=== PATIENT | female | born 1940 | race Caucasian/White ===

== ENCOUNTER → 2021-06-15 | Outpatient (CLI) | payer MEDICARE | END | disposition home or self-care (01) | LOC: RADUSWWP 09:50 | PROVIDERS: ATTEND Family Medicine | DX: M79.661 Pain in right lower leg (principal); M79.662 Pain in left lower leg | CPT/HCPCS: 93922 ==

== ENCOUNTER 2021-08-20 14:33 | Observation (INO) | payer OTHER, MEDICARE ==
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
[2021-08-20 15:48] LABS: Basophils % (A) 0 %; Eosinophils # (A) 0.1 k/uL (0-0.7); Eosinophils % (A) 1 %; HCT 40.7 % (34.0-46.0); HGB 13.5 gm/dL (11.4-16.0); Lymphocytes # (A) 1.5 k/uL (1.0-4.8); Lymphocytes % (A) 17 %; MCH 31.6 pg (25.0-35.0); MCHC 33.2 g/dL (31.0-37.0); MCV 95.4 fL (80.0-100.0); Mean Platelet Volume 8.6; Monocytes # (A) 0.4 k/uL (0-1.0); Monocytes % (A) 5 %; Neutrophils # (A) 6.8 k/uL (1.3-7.7); Neutrophils % (A) 76 %; Platelet Count 159 k/uL (150-450); RBC 4.27 m/uL (3.80-5.40); RDW 12.5 % (11.5-15.5)
[2021-08-20 15:59] LABS: ALT 27 U/L (4-34); AST 33 U/L (14-36); African American GFR (CKD) 81 (>60 ml/min/1.73 sqM); Albumin 4.2 g/dL (3.5-5.0); Alcohol <10 mg/dL; Alkaline Phosphatase 71 U/L (38-126); Anion Gap 5 mmol/L; Blood Urea Nitrogen 18 mg/dL (7-17); Calcium 9.1 mg/dL (8.4-10.2); Carbon Dioxide 27 mmol/L (22-30); Chloride 104 mmol/L (98-107); Glucose 118 mg/dL (74-99); Non-African American GFR(CKD) 71 (>60 ml/min/1.73 sqM); Potassium 3.9 mmol/L (3.5-5.1); Sodium 136 mmol/L (137-145); Total Bilirubin 0.3 mg/dL (0.2-1.3); Total Protein 6.6 g/dL (6.3-8.2)
[2021-08-20 16:01] LABS: Partial Thromboplastin Time 26.6 sec (22.0-30.0); Prothrombin Time 10.5 sec (9.0-12.0)
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
[2021-08-20] MEDS: MORPHINE SULFATE 2 MG/ML SYRINGE IVP STA ×2 (16:13→17:09)
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
[2021-08-20] MEDS ORDERED: MORPHINE SULFATE 4 MG/ML SYRINGE IVP STA (19:16)
[2021-08-20] MEDS ORDERED: ACET/COD 300 MG/30 MG STARTER PACK 6 TAB BTL PO STA (22:18)
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
[2021-08-20] MEDS ORDERED: NALOXONE 0.4 MG/ML 1 ML VIAL IV PRN (23:06)
[2021-08-20] MEDS ORDERED: MORPHINE SULFATE 4 MG/ML SYRINGE IV PRN (23:06)
[2021-08-20 23:18] LABS: Amorphous Sediment,Urine Occasional /hpf; Appearance,Urine Cloudy (Clear); Bilirubin,Urine Negative (Negative); Blood,Urine Negative (Negative); Color,Urine Light Yellow; Glucose,Urine (UA) Negative (Negative); Ketones,Urine Negative (Negative); Leukocyte Esterase,Urine Negative (Negative); Nitrite,Urine Negative (Negative); PH, Urine 7.5 (5.0-8.0); Protein,Urine Negative (Negative); RBC,Urine 1 /hpf (0-5); Squamous Epithelial Cell,Urine <1 /hpf (0-4); Urobilinogen,Urine <2.0 mg/dL (<2.0); WBC,Urine 1 /hpf (0-5)
[2021-08-20 23:21] LABS: Amphetamine Screen,Urine Not Detected (NotDetected); Barbiturate Screen,Urine Not Detected (NotDetected); Benzodiazepines Screen,Urine Not Detected (NotDetected); Cocaine Screen,Urine Not Detected (NotDetected); Methadone Screen, Urine Not Detected (NotDetected); Opiate Screen,Urine Detected (NotDetected); Oxycodone Screen, Urine Not Detected (NotDetected); Phencyclidine Screen,Urine Not Detected (NotDetected); Tricyclic Antidepressant,Urine Not Detected (NotDetected); Urn Cannabinoid Scrn Not Detected (NotDetected)
[2021-08-21] MEDS: ONDANSETRON 4 MG/2 ML VIAL IVP PRN ×2 (01:07→09:55)
[2021-08-21] MEDS ORDERED: ACETAMINOPHEN TAB 325 MG TAB PO PRN (03:09)
[2021-08-21 07:06] VITALS: RESP 16
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
[2021-08-21] MEDS ORDERED: PANTOPRAZOLE 40 MG TABLET PO SCH (17:30)
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
[2021-08-21] MEDS ORDERED: ASPIRIN 81 MG PO SCH (20:30)
[2021-08-21] MEDS ORDERED: ATORVASTATIN 10 MG TAB PO SCH (21:00)
[2021-08-21 21:48] VITALS: BP 163/56; PULSE 75; TEMP 98.4
== END 2021-08-21 20:33 | disposition left against medical advice (07) ==
LOC: EC 14:33 → 6NMEDSUR 23:18
PROVIDERS: ADMIT Surgery; ATTEND Surgery
DX: S52.612A Displaced fracture of left ulna styloid process, initial encounter for closed fracture (principal); S52.502A Unspecified fracture of the lower end of left radius, initial encounter for closed fracture; S52.572A Other intraarticular fracture of lower end of left radius, initial encounter for closed fracture; R11.0 Nausea; R42 Dizziness and giddiness; S40.022A Contusion of left upper arm, initial encounter; S40.021A Contusion of right upper arm, initial encounter; S80.12XA Contusion of left lower leg, initial encounter; S80.11XA Contusion of right lower leg, initial encounter; E78.5 Hyperlipidemia, unspecified; K21.9 Gastro-esophageal reflux disease without esophagitis; R20.0 Anesthesia of skin; R07.89 Other chest pain; R03.0 Elevated blood-pressure reading, without diagnosis of hypertension; M79.18 Myalgia, other site; Z87.891 Personal history of nicotine dependence; V89.2XXA Person injured in unspecified motor-vehicle accident, traffic, initial encounter; W22.11XA Striking against or struck by driver side automobile airbag, initial encounter; Z71.9 Counseling, unspecified; V43.52XA Car driver injured in collision with other type car in traffic accident, initial encounter; Y92.410 Unspecified street and highway as the place of occurrence of the external cause; Z79.899 Other long term (current) drug therapy; Z79.82 Long term (current) use of aspirin; Z79.83 Long term (current) use of bisphosphonates; Z90.710 Acquired absence of both cervix and uterus
CPT/HCPCS: 96376 ×2; 96375; 96374; 99285; 36415; 93005; 97535; 97166; 86900; 86901; 80053; 84484; 85025; 85610; 85730; 86850; 81001; 80306; 80320; 73110; 73030; 73590; 73080; 73090; 73130; 71045; 93880; 73200; 72125; 70450; 71260; 74177; G0378 ×2; J2270 ×3; J2405; Q9967

== ENCOUNTER 2021-08-26 11:51 | Day surgery (SDC) | payer OTHER, MEDICARE ==
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
[~2021-08-26 11:51] MED LIST: HYDROmorphone 0.5 MG/0.5 ML SYRINGE IVP PRN; LACTATED RINGERS 1,000 ML IV SCH; LIDOCAINE 1% (10MG/ML) FOR IV START INTRADERMA PRN; ONDANSETRON 4 MG/2 ML VIAL IVP ONE
[2021-08-26] MEDS ORDERED: LACTATED RINGERS 1,000 ML IV ONE (13:03)
[2021-08-26] MEDS ORDERED: MIDAZOLAM 2 MG/2 ML VIAL IVP ONE (13:06)
[2021-08-26] MEDS ORDERED: MIDAZOLAM 2 MG/2 ML VIAL ONE (14:08)
[2021-08-26] MEDS ORDERED: LIDOCAINE 2% INJ 20 MG/ML (2 ML VIAL) ONE (14:08)
[2021-08-26] MEDS ORDERED: PROPOFOL 10 MG/ML 20 ML VIAL IV ONE (14:08)
[2021-08-26] MEDS ORDERED: fentaNYL (PF) 50 MCG/ML 2 ML AMP ONE (14:08)
[2021-08-26] MEDS ORDERED: ROPIVACAINE 5 MG/ML 30 ML VIAL ONE (14:08)
[2021-08-26] MEDS ORDERED: hydrALAZINE HCL 20 MG/ML 1 ML VIAL IVP ONE (15:53)
[2021-08-26 16:12] VITALS: TEMP 97.4
[2021-08-26 16:17] VITALS: RESP 16
[2021-08-26 17:04] VITALS: BP 168/66; PULSE 100
--- NOTE | 2021-08-26 18:27 | P.ANPRN ---
Procedure Note - Anesthesia - Nerve Block Performed Left Axillary Time Out Performed: Yes (13:05) Date of Procedure: 08/26/21 Procedure Start Time: :05 Procedure Stop Time: :14 Location of Patient: PreOp Indication: Acute Post-Operative Pain, Requested by Surgeon (Dr Smith) Sedation Type: Sedate with meaningful contact maintained Preparation: Sterile Prep Position: Supine Catheter: None Needle Types: Pajunk Needle Gauge: Other (see comment) (22g) Ultrasound used to visualize needle placement: Yes Ultrasound used to observe medication spread: Yes Injectate: 0.5% Ropivacaine (see comment for volume) (20cc) Blood Aspirated: No Pain Paresthesia on Injection Noted: No Resistance on Injection: Normal Image Stored and Saved: Yes Events: Uneventful and Well Tolerated
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
== END 2021-08-26 17:22 | disposition home or self-care (01) ==
LOC: OR 11:51
PROVIDERS: ATTEND Orthopaedic Surgery Hand Surgery
DX: S52.572A Other intraarticular fracture of lower end of left radius, initial encounter for closed fracture (principal); S63.015A Dislocation of distal radioulnar joint of left wrist, initial encounter; V89.2XXA Person injured in unspecified motor-vehicle accident, traffic, initial encounter; K21.9 Gastro-esophageal reflux disease without esophagitis; M81.0 Age-related osteoporosis without current pathological fracture; I65.29 Occlusion and stenosis of unspecified carotid artery; E78.5 Hyperlipidemia, unspecified; Z87.891 Personal history of nicotine dependence; Z85.828 Personal history of other malignant neoplasm of skin; Z79.82 Long term (current) use of aspirin; Z79.899 Other long term (current) drug therapy; Z90.710 Acquired absence of both cervix and uterus; Z98.42 Cataract extraction status, left eye; Z98.41 Cataract extraction status, right eye; Z97.2 Presence of dental prosthetic device (complete) (partial)
CPT/HCPCS: 25609; 25671; 64417; 76942; C1713; J2250; J0360; J2405; J0690; J3010; J2795; J2704; J2001; 64415

== ENCOUNTER → 2023-04-01 | Outpatient (CLI) | payer MEDICARE ==
[~2023-04-01] MED LIST changes: +DENOSUMAB 60 MG/ML 1 ML SYRINGE SQ NR; -HYDROmorphone 0.5 MG/0.5 ML SYRINGE IVP PRN; -LACTATED RINGERS 1,000 ML IV SCH; -LIDOCAINE 1% (10MG/ML) FOR IV START INTRADERMA PRN; -ONDANSETRON 4 MG/2 ML VIAL IVP ONE
[2023-04-01 11:47] VITALS: BP 146/48; PULSE 58; RESP 15; TEMP 98.9
== END ==
LOC: PROCWHC3 11:03
PROVIDERS: ATTEND Family Medicine
DX: M81.0 Age-related osteoporosis without current pathological fracture (principal)
CPT/HCPCS: 96372; J0897